=== PATIENT | female | born 1970 | race Caucasian/White ===

== ENCOUNTER → 2016-06-06 | Outpatient (CLI) | payer OTHER ==
[~2016-06-06] MED LIST: 'XANAX0.25 MG PO; ACETAMINOPHEN-H1 TA2 PO; ADVIL CHIL100 MG/5 M PO; AKWA TEARS 15 M15 ML OPH; AMBIEN5 MG PO; AUGMENTIN 500 M1 TAB PO; BENADRYL25 M2 PO; BENTYL10 MG PO; BENTYL20 MG PO; BUMEX2 MG PO; CEFADROXIL500 M1 PO; CEFTIN500 M1 PO; CLARITIN10 MG PO; CYMBALTA20 M1 PO; CYMBALTA60 MG PO; Carafate1 GM/10 ML NG; D-1000 185 MG-11 TAB PO; DAYPRO600 M1 PO; DECADRON4 MG PO; DESENEX43 GM TP; DEXTROSE IV; DUONEB 3 MG/3 ML3 M1 NEB; EFFER-K20 MEQ PO; ELMIRON100 MG PO; FLORASTOR 33 MG1 CAP PO; GABAPENTIN100 M2 PO; GABAPENTIN100 MG PO; GOOD SENSE ALLE10 MG PO; HOMEMED PO; IMODIUM A-D2 M2 PO; INHALERS; IPRAT-ALBUT 0.5-3(2.; K-LOR20 MEQ PO; KETOROLAC10 MG PO; KROGER NIC21 MG/24 H T; KROGER NIC21 MG/24 H TD; LASIX20 MG PO; LISINOPRIL2.5 MG PO; LISINOPRIL5 MG PO; LOPRESSOR25 MG PO; LORAZEPAM0.5 MG PO; LOSARTAN POTASS25 M1 PO; Lomotil,Lonox 01 TAB PO; Lopressor25 MG PO; MACROBID100 M1 PO; MAGOX 400400 MG PO; MAPAP325 MG PO; METHADONE10 MG PO; MIDAZOLAM HCL IV; MIRALAX17 GM PO; MORPHINE SULF2 MG/M1 IV; MOTRIN800 MG PO; MS CONTIN30 MG PO; NEULASTA6 MG/0.6 M IV; NEURONTIN100 MG PO; NEURONTIN300 MG PO; NICOTINE T21 MG/24 H TD; NOVAPLUS SOLU-M40 MG IV; NYSTATIN100000 U/M PO; Nicotrol 10MG I1 BOX INH; ONDANSETRON HYDR8 MG PO; OXAPROZIN600 MG PO; PERCOCET 325 MG1 TA2 PO; PERCOCET 325 MG1 TA7 PO; PERCOCET 325 MG1 TAB PO; PHENERGAN25 M3 PO; PHOS-NAK1 PDR OGT; POTA IV; PREDNICOT10 MG PO; PREDNISONE10 MG PO; PREDNISONE50 MG PO; PRILOSEC20 MG PO; PROAIR HFA8.5 GM INH; PROBIOTIC1 EAC3 PO; PROMETHAZINE25 M1 PO; PROTONIX40 M1 IV; Phenergan25 MG PO; RESTORIL7.5 MG PO; RISPERIDONE0.25 M2 PO; ROBAXIN750 MG PO; SHOWERCH; SINGULAIR10 M1 PO; SONATA5 MG PO; TRAZADONE HYDR100 MG PO; TRAZODONE50 MG PO; TYLENOL650 MG R; ULTRAM50 MG PO; VALIUM2 MG PO; VANCO 750750 MG/250 IV; VANCOMYCIN1 GM/250 M IV; VENTOLIN H0.09 MG/AC INH; VICO75300 PO; VICODIN 5/500 505 MG PO; VICODIN ES 7501 TAB PO; VISTARIL25 M2 PO; VITAMIN B1250 MCG PO; VITAMIN C500 M6 PO; VITAMIN D1000 IU PO; VITAMIN D5000 I2 PO; VOLTAREN GEL1% TP; XANAX0.5 MG PO; ZOFRAN ODT4 MG SL; ZOFRAN8 M1 PO; ZOLPIDEM TARTRAT5 MG PO; ZOVIRAX 5%15 GM T; [UNRECOGNIZED DRUG - OTHER]; [UNRECOGNIZED DRUG - OTHER] OP
[2016-06-06 16:45] LABS: BASO % 0.2 % (0.0-1.0); EOS # 0.1 10*3/uL (0.0-0.4); EOS % 2.2 % (1.0-4.0); HEMATOCRIT 38.7 % (37.0-47.0); HEMOGLOBIN 12.8 g/dl (12.0-16.0); IG # 0.1 10*3/uL (0.0-0.1); LYMPH # 2.2 10*3/uL (1.3-4.4); LYMPH % 37.2 % (27.0-41.0); MEAN CELL VOLUME 93.3 fl (81.0-99.0); MEAN CORPUSCULAR HGB 30.8 pg (27.0-31.0); MEAN CORPUSCULAR HGB CONC 33.1 g/dl (33.0-37.0); MEAN PLATELET VOLUME 9.2 fl (9.6-12.3); MONO # 0.6 10*3/uL (0.1-1.0); MONO % 10.7 % (3.0-9.0); NEUT # 2.9 10*3/uL (2.3-7.9); NEUT % 48.7 % (47.0-73.0); PLATELET COUNT AUTOMATED 215 10*3/uL (130-400); RED BLOOD COUNT 4.15 10*6/uL (4.10-5.10); RED CELL DISTRI WIDTH 13.4 % (0-14.5)
[2016-06-06 17:21] LABS: ALBUMIN 3.3 gm/dl (3.1-4.5); ALKALINE PHOSPHATASE 116 U/L (45-117); BILIRUBIN, TOTAL 0.2 mg/dl (0.2-1.0); BUN 9 mg/dl (7-24); CARBON DIOXIDE 28 mmol/L (21-32); CHLORIDE 106 mmol/L (98-107); CHOLESTEROL 210 mg/dL (<200); EST GLOM FILT AFRICAN AMERICAN > 60 ml/min; GLUCOSE 78 mg/dL (65-99); HDL CHOLESTEROL 61 mg/dl (40-60); LDL CHOLESTEROL 111 mg/dL (9-159); POTASSIUM 3.9 mmol/L (3.5-5.1); SGOT/AST 15 IU/L (3-35); SGPT/ALT 24 U/L (12-78); SODIUM 143 mmol/L (136-145); TOTAL PROTEIN 7.1 gm/dL (6.4-8.2); TRIGLYCERIDES 188 mg/dl (<150); VLDL CHOLESTEROL 38 mg/dL (6-40)
== END | disposition home or self-care (01) ==
LOC: LAB 15:21
PROVIDERS: Family Medicine
DX: Z00.01 Encounter for general adult medical examination with abnormal findings (principal); I10 Essential (primary) hypertension; C50.919 Malignant neoplasm of unspecified site of unspecified female breast; I25.5 Ischemic cardiomyopathy

== ENCOUNTER 2016-07-25 07:37 | Inpatient (IN) | payer OTHER ==
[~2016-07-25] VITALS: Ht 157 cm; Wt 93.0 kg
--- NOTE | ~2016-07-25 | CON ---
[place], [place] REPORT OF CONSULTATION NAME: GIDEON JIMÉNEZ [facility] #: [id number] UNIT #: [id number] ROOM: 415 DOCTOR: FUENTES HAWKINS ED.D) BIRTHDATE: [birth year] DOS: 07/27/2016 HISTORY OF PRESENT ILLNESS: The patient is a 45-year-old female referred by Dr. Cleary for psychological evaluation and competency evaluation. At the present time, this patient is on the 4th floor at [facility]. She is a and has no children. Her parents are both living and her father was present during the interview at her request. She states her family physician is Dr. Koenig and her medical history is pertinent for cancer of the breast with metastasis, hypertension, COPD and major depression. Her medications include ProAir, Valium, Voltaren, Lasix, Neurontin, Ativan, Vistaril, lisinopril, magnesium oxide, Lopressor, Singulair, MS Contin, Zofran, Percocet, Elmiron, trazodone and Cymbalta. She did not tell the staff she was taking Cymbalta and I did inform the hospitalist that she had been taking Cymbalta for quite some time and they will restart her medications. This patient denies any substance abuse issues; however, she does smoke. She was awake, alert and oriented in all three spheres. She denies any suicidal ideation or plan. She states she is having great deal of difficulty with her cancer and is scheduled for chemotherapy again. She is quite depressed about her situation and has been concerned because of her medications. Her family physician is not going to continue to write some of the medications and I suggested she needed to follow up with Psychiatry, but she states she does not want to see anybody else until after her chemo is completed. DIAGNOSES: Major depressive disorder, recurrent. RECOMMENDATIONS: In my opinion, this patient would benefit from continuing her Cymbalta and possibly considering outpatient counseling once her chemotherapy is completed. Thank you very much for this consult. FUENTES HAWKINS ED.D CM:CONSTR:REPORT OF CONSULTATION 1136 07/27/16 1219 interface
[~2016-07-25 07:37] MED LIST changes: -D-1000 185 MG-11 TAB PO; -KROGER NIC21 MG/24 H TD; -MS CONTIN30 MG PO; -Nicotrol 10MG I1 BOX INH; -PREDNISONE50 MG PO; -SINGULAIR10 M1 PO; -VOLTAREN GEL1% TP
[2016-07-25 08:32] LABS: BASO % 0.3 % (0.0-1.0); EOS # 0.2 10*3/uL (0.0-0.4); EOS % 2.8 % (1.0-4.0); HEMATOCRIT 36.6 % (37.0-47.0); LYMPH # 2.2 10*3/uL (1.3-4.4); LYMPH % 35.8 % (27.0-41.0); MEAN CELL VOLUME 93.1 fl (81.0-99.0); MEAN CORPUSCULAR HGB 30.5 pg (27.0-31.0); MEAN CORPUSCULAR HGB CONC 32.8 g/dl (33.0-37.0); MEAN PLATELET VOLUME 9.1 fl (9.6-12.3); MONO # 0.8 10*3/uL (0.1-1.0); MONO % 13.5 % (3.0-9.0); NEUT # 2.9 10*3/uL (2.3-7.9); PLATELET COUNT AUTOMATED 227 10*3/uL (130-400); RED BLOOD COUNT 3.93 10*6/uL (4.10-5.10); RED CELL DISTRI WIDTH 13.2 % (0-14.5); WHITE BLOOD COUNT 6.2 10*3/uL (4.8-10.8)
[2016-07-25 08:41] LABS: INTERNATIONAL NORM RATIO 0.9 (2.0-3.5)
[2016-07-25 08:48] LABS: ALBUMIN 3.1 gm/dl (3.1-4.5); ALKALINE PHOSPHATASE 114 U/L (45-117); BILIRUBIN, TOTAL 0.2 mg/dl (0.2-1.0); BUN 11 mg/dl (7-24); C-REACTIVE PROTEIN 1.31 MG/DL (0-0.3); CARBON DIOXIDE 29 mmol/L (21-32); CHLORIDE 104 mmol/L (98-107); CPK 53 U/L (26-192); EST GLOM FILT AFRICAN AMERICAN > 60 ml/min; GLUCOSE 84 mg/dL (65-99); MAGNESIUM 1.7 mg/dL (1.5-2.1); POTASSIUM 3.7 mmol/L (3.5-5.1); SGOT/AST 13 IU/L (3-35); SGPT/ALT 19 U/L (12-78); SODIUM 141 mmol/L (136-145); TOTAL PROTEIN 6.9 gm/dL (6.4-8.2)
[2016-07-25 08:49] LABS: CKMB < 0.5 ng/ml (0.5-3.6); TROPONIN I < 0.015 ng/ml (<0.045)
[2016-07-25 10:06] LABS: BILIRUBIN NEGATIVE (NEGATIVE); BLOOD NEGATIVE (NEGATIVE); CLARITY CLOUDY (CLEAR); COLOR YELLOW (YELLOW); GLUCOSE NEGATIVE (NEGATIVE); KETONE NEGATIVE (NEGATIVE); LEUKO ESTERASE NEGATIVE (NEGATIVE); NITRITE NEGATIVE (NEGATIVE); PROTEIN NEGATIVE (NEGATIVE); UROBILINOGEN 0.2 E.U./dl (0.2-1.0)
[2016-07-25 10:22] LABS: BACTERIA 3+; MUCOUS 1+; URINE REFLEX COMMENT YES (NO)
[2016-07-25] MEDS ORDERED: SINGULAIR10 M1 PO (11:09)
[2016-07-25] MEDS ORDERED: MS CONTIN30 MG PO (11:11)
[2016-07-25] MEDS ORDERED: VOLTAREN GEL1% TP (12:11)
[2016-07-25] MEDS ORDERED: KROGER NIC21 MG/24 H TD (12:12)
[2016-07-25 12:18] LABS: CKMB < 0.5 ng/ml (0.5-3.6); CPK 53 U/L (26-192); TROPONIN I < 0.015 ng/ml (<0.045)
[2016-07-25 18:26] LABS: CKMB < 0.5 ng/ml (0.5-3.6); CPK 66 U/L (26-192); TROPONIN I < 0.015 ng/ml (<0.045)
[2016-07-26 00:49] LABS: CPK 65 U/L (26-192)
[2016-07-26 00:51] LABS: CKMB < 0.5 ng/ml (0.5-3.6); TROPONIN I < 0.015 ng/ml (<0.045)
[2016-07-26 06:45] LABS: BASO % 0.1 % (0.0-1.0); HEMATOCRIT 36.7 % (37.0-47.0); HEMOGLOBIN 11.9 g/dl (12.0-16.0); IG # 0.1 10*3/uL (0.0-0.1); LYMPH % 9.9 % (27.0-41.0); MEAN CELL VOLUME 93.9 fl (81.0-99.0); MEAN CORPUSCULAR HGB 30.4 pg (27.0-31.0); MEAN CORPUSCULAR HGB CONC 32.4 g/dl (33.0-37.0); MEAN PLATELET VOLUME 9.5 fl (9.6-12.3); MONO # 0.6 10*3/uL (0.1-1.0); NEUT # 8.4 10*3/uL (2.3-7.9); NEUT % 83.2 % (47.0-73.0); PLATELET COUNT AUTOMATED 247 10*3/uL (130-400); RED BLOOD COUNT 3.91 10*6/uL (4.10-5.10); RED CELL DISTRI WIDTH 13.2 % (0-14.5); WHITE BLOOD COUNT 10.1 10*3/uL (4.8-10.8)
[2016-07-26 07:11] LABS: PROTHROMBIN TIME 10.2 SECONDS (9.0-12.4)
[2016-07-26 07:14] LABS: BILIRUBIN, TOTAL 0.1 mg/dl (0.2-1.0); CHLORIDE 104 mmol/L (98-107); POTASSIUM 3.9 mmol/L (3.5-5.1); SODIUM 142 mmol/L (136-145)
[2016-07-26 07:21] LABS: ALBUMIN 3.2 gm/dl (3.1-4.5); ALKALINE PHOSPHATASE 105 U/L (45-117); BUN 12 mg/dl (7-24); CARBON DIOXIDE 27 mmol/L (21-32); EST GLOM FILT AFRICAN AMERICAN > 60 ml/min; FREE T4 0.96 ng/dl (0.76-1.46); GLUCOSE 162 mg/dL (65-99); PHOSPHOROUS 1.4 mg/dL (2.5-4.9); SGOT/AST 9 IU/L (3-35); SGPT/ALT 18 U/L (12-78)
[2016-07-26 07:41] LABS: HEMOGLOBIN A1c 5.6 % (4.8-5.6)
[2016-07-26 09:23] LABS: VITAMIN D, 25-HYDROXY 24.2 ng/mL (30-100)
[2016-07-26 09:24] LABS: FOLIC ACID 6.34 ng/mL (>5.38)
[2016-07-27 10:52] LABS: INTERNATIONAL NORM RATIO 0.9 (2.0-3.5); PROTHROMBIN TIME 9.9 SECONDS (9.0-12.4)
[2016-07-27 11:00] LABS: ALBUMIN 3.1 gm/dl (3.1-4.5); ALKALINE PHOSPHATASE 93 U/L (45-117); BILIRUBIN, TOTAL 0.1 mg/dl (0.2-1.0); BUN 13 mg/dl (7-24); CARBON DIOXIDE 25 mmol/L (21-32); CHLORIDE 107 mmol/L (98-107); EST GLOM FILT AFRICAN AMERICAN > 60 ml/min; GLUCOSE 184 mg/dL (65-99); POTASSIUM 3.9 mmol/L (3.5-5.1); SGOT/AST 12 IU/L (3-35); SGPT/ALT 21 U/L (12-78); SODIUM 144 mmol/L (136-145); TOTAL PROTEIN 6.7 gm/dL (6.4-8.2)
[2016-07-27 11:01] LABS: TROPONIN I < 0.015 ng/ml (<0.045)
[2016-07-27 11:03] LABS: BASO % 0.1 % (0.0-1.0); HEMATOCRIT 36.5 % (37.0-47.0); HEMOGLOBIN 11.6 g/dl (12.0-16.0); IG # 0.3 10*3/uL (0.0-0.1); LYMPH # 1.1 10*3/uL (1.3-4.4); LYMPH % 7.9 % (27.0-41.0); MEAN CELL VOLUME 94.8 fl (81.0-99.0); MEAN CORPUSCULAR HGB 30.1 pg (27.0-31.0); MEAN CORPUSCULAR HGB CONC 31.8 g/dl (33.0-37.0); MEAN PLATELET VOLUME 9.5 fl (9.6-12.3); MONO # 0.7 10*3/uL (0.1-1.0); NEUT # 11.8 10*3/uL (2.3-7.9); NEUT % 85.2 % (47.0-73.0); NUCLEATED RED BLOOD CELL 0.1 % (0.0-0.0); PLATELET COUNT AUTOMATED 227 10*3/uL (130-400); RED BLOOD COUNT 3.85 10*6/uL (4.10-5.10); RED CELL DISTRI WIDTH 13.5 % (0-14.5); WHITE BLOOD COUNT 13.9 10*3/uL (4.8-10.8)
[2016-07-28] MEDS ORDERED: PREDNISONE50 MG PO (09:00)
[2016-07-28] MEDS ORDERED: Nicotrol 10MG I1 BOX INH (09:02)
[2016-07-28] MEDS ORDERED: D-1000 185 MG-11 TAB PO (09:02)
== END 2016-07-28 10:41 | disposition home or self-care (01) | DRG 193 ==
LOC: ED 07:37 → 4E 09:49 → EDHOLD 09:49 → 4E 10:14
PROVIDERS: Emergency Medicine; Internal Medicine; Student in an Organized Health Care Education/Training Program
PROC: 0S9C3ZZ Drainage of Right Knee Joint, Percutaneous Approach (ICD-10-PCS; principal; 2016-07-27)
PROC: 3E0U33Z Introduction of Anti-inflammatory into Joints, Percutaneous Approach (ICD-10-PCS; 2016-07-27)
PROC: 3E0U3BZ Introduction of Anesthetic Agent into Joints, Percutaneous Approach (ICD-10-PCS; 2016-07-27)
DX: J18.9 Pneumonia, unspecified organism (principal); J96.01 Acute respiratory failure with hypoxia; E43 Unspecified severe protein-calorie malnutrition; E27.8 Other specified disorders of adrenal gland; D68.59 Other primary thrombophilia; J44.0 Chronic obstructive pulmonary disease with (acute) lower respiratory infection; F33.9 Major depressive disorder, recurrent, unspecified; C50.911 Malignant neoplasm of unspecified site of right female breast; J44.1 Chronic obstructive pulmonary disease with (acute) exacerbation; G89.29 Other chronic pain; I10 Essential (primary) hypertension; J45.909 Unspecified asthma, uncomplicated; M25.562 Pain in left knee; M25.561 Pain in right knee; Z92.21 Personal history of antineoplastic chemotherapy; I25.2 Old myocardial infarction; Z87.01 Personal history of pneumonia (recurrent); Z90.13 Acquired absence of bilateral breasts and nipples; Z83.6 Family history of other diseases of the respiratory system; Z82.49 Family history of ischemic heart disease and other diseases of the circulatory system; Z80.8 Family history of malignant neoplasm of other organs or systems; Z88.8 Allergy status to other drugs, medicaments and biological substances; Z91.048 Other nonmedicinal substance allergy status; Z79.1 Long term (current) use of non-steroidal anti-inflammatories (NSAID); Z79.899 Other long term (current) drug therapy; Z71.6 Tobacco abuse counseling; Z68.37 Body mass index [BMI] 37.0-37.9, adult

== ENCOUNTER 2016-10-20 00:38 | Inpatient (IN) | payer OTHER ==
[~2016-10-20] VITALS: Ht 157.4 cm; Wt 94.4 kg
[~2016-10-20 00:38] MED LIST changes: +D-1000 185 MG-11 TAB PO; +KROGER NIC21 MG/24 H TD; +MS CONTIN30 MG PO; +Nicotrol 10MG I1 BOX INH; +PREDNISONE50 MG PO; +SINGULAIR10 M1 PO; +VOLTAREN GEL1% TP
[2016-10-20] MEDS ORDERED: CHANTIX1 M1 TD (00:51)
[2016-10-20 00:53] VITALS: BP 143/106
[2016-10-20 01:34] LABS: BASO % 0.4 % (0.0-1.0); EOS # 0.1 10*3/uL (0.0-0.4); EOS % 2.6 % (1.0-4.0); HEMATOCRIT 36.2 % (37.0-47.0); HEMOGLOBIN 12.2 g/dl (12.0-16.0); LYMPH % 38.7 % (27.0-41.0); MEAN CELL VOLUME 93.5 fl (81.0-99.0); MEAN CORPUSCULAR HGB 31.5 pg (27.0-31.0); MEAN CORPUSCULAR HGB CONC 33.7 g/dl (33.0-37.0); MEAN PLATELET VOLUME 8.7 fl (9.6-12.3); MONO # 0.7 10*3/uL (0.1-1.0); NEUT # 2.2 10*3/uL (2.3-7.9); NEUT % 44.1 % (47.0-73.0); PLATELET COUNT AUTOMATED 193 10*3/uL (130-400); RED BLOOD COUNT 3.87 10*6/uL (4.10-5.10); RED CELL DISTRI WIDTH 16.2 % (0-14.5); WHITE BLOOD COUNT 5.1 10*3/uL (4.8-10.8)
[2016-10-20 01:46] LABS: PROTHROMBIN TIME 10.3 SECONDS (9.0-12.4)
[2016-10-20 01:51] LABS: ALBUMIN 3.7 gm/dl (3.1-4.5); ALKALINE PHOSPHATASE 149 U/L (45-117); BILIRUBIN, TOTAL 0.3 mg/dl (0.2-1.0); BUN 10 mg/dl (7-24); CARBON DIOXIDE 31 mmol/L (21-32); CHLORIDE 102 mmol/L (98-107); EST GLOM FILT AFRICAN AMERICAN > 60 ml/min; GLUCOSE 76 mg/dL (65-99); POTASSIUM 3.6 mmol/L (3.5-5.1); SGOT/AST 15 IU/L (3-35); SGPT/ALT 18 U/L (12-78); SODIUM 142 mmol/L (136-145); TOTAL PROTEIN 7.3 gm/dL (6.4-8.2)
[2016-10-20 02:58] LABS: BILIRUBIN NEGATIVE (NEGATIVE); BLOOD NEGATIVE (NEGATIVE); CLARITY SL CLOUDY (CLEAR); COLOR YELLOW (YELLOW); GLUCOSE NEGATIVE (NEGATIVE); KETONE NEGATIVE (NEGATIVE); LEUKO ESTERASE NEGATIVE (NEGATIVE); NITRITE NEGATIVE (NEGATIVE); PROTEIN NEGATIVE (NEGATIVE); SPECIFIC GRAVITY 1.015 (1.005-1.030)
[2016-10-20 03:14] LABS: BACTERIA TRACE; EPITHELIAL CELLS TNTC
[2016-10-20 03:15] LABS: URINE REFLEX COMMENT NO (NO)
[2016-10-20 03:50] VITALS: BP 127/79
[2016-10-20] MEDS ORDERED: OMEPRAZOLE20 M2 PO (04:33)
[2016-10-20] MEDS ORDERED: IMODIUM A-D2 M3 PO (04:34)
[2016-10-20] MEDS ORDERED: SYMBICORT1 AE1 INH (04:36)
[2016-10-20] MEDS ORDERED: POTASSIUM CHLO20 ME4 PO (04:37)
[2016-10-20] MEDS ORDERED: CAPECITABINE500 MG PO (04:41)
[2016-10-20 08:00] VITALS: BP 122/68
[2016-10-20 16:00] VITALS: BP 136/72
[2016-10-20 20:00] VITALS: BP 116/65
[2016-10-20] MEDS ORDERED: NICODERM C21 MG/24 H TD (23:14)
[2016-10-21] VITALS: BP 106/57
[2016-10-21 08:00] VITALS: BP 100/40
[2016-10-21 16:00] VITALS: BP 132/98
[2016-10-21 20:00] VITALS: BP 145/89
[2016-10-22] VITALS: BP 118/56
[2016-10-22 06:13] LABS: BASO % 0.1 % (0.0-1.0); HEMATOCRIT 33.6 % (37.0-47.0); HEMOGLOBIN 10.8 g/dl (12.0-16.0); IG # 0.1 10*3/uL (0.0-0.1); LYMPH % 11.4 % (27.0-41.0); MEAN CELL VOLUME 98.2 fl (81.0-99.0); MEAN CORPUSCULAR HGB 31.6 pg (27.0-31.0); MEAN CORPUSCULAR HGB CONC 32.1 g/dl (33.0-37.0); MEAN PLATELET VOLUME 9.4 fl (9.6-12.3); MONO # 0.4 10*3/uL (0.1-1.0); MONO % 4.1 % (3.0-9.0); NEUT # 7.1 10*3/uL (2.3-7.9); PLATELET COUNT AUTOMATED 178 10*3/uL (130-400); RED BLOOD COUNT 3.42 10*6/uL (4.10-5.10); RED CELL DISTRI WIDTH 17.1 % (0-14.5); WHITE BLOOD COUNT 8.5 10*3/uL (4.8-10.8)
[2016-10-22 06:26] LABS: BUN 17 mg/dl (7-24); CARBON DIOXIDE 29 mmol/L (21-32); CHLORIDE 102 mmol/L (98-107); EST GLOM FILT AFRICAN AMERICAN > 60 ml/min; GLUCOSE 171 mg/dL (65-99); POTASSIUM 4.1 mmol/L (3.5-5.1); SODIUM 140 mmol/L (136-145)
[2016-10-22 08:00] VITALS: BP 127/67
[2016-10-22] MEDS ORDERED: PREDNISONE10 MG PO (11:00)
[2016-10-22] MEDS ORDERED: DUONEB 3 MG/3 ML3 M1 INH (11:00)
[2016-10-22] MEDS ORDERED: D-1000 185 MG-11 TAB PO (11:00)
[2016-10-22] MEDS ORDERED: CHANTIX1 M1 PO (11:00)
[2016-10-22] MEDS ORDERED: LEVAQUIN500 M2 PO (11:00)
[2016-10-22] MEDS ORDERED: MS CONTIN30 MG PO (11:00)
[2016-10-22] MEDS ORDERED: AEROECLIPSE NEB1 DEV NEB (11:00)
[2016-10-22] MEDS ORDERED: LACTULOSE20 GM/30 M PO (11:02)
== END 2016-10-22 13:16 | disposition home or self-care (01) | DRG 177 ==
LOC: ED 00:38 → 5E 03:40
PROVIDERS: Emergency Medicine; Internal Medicine
DX: J15.6 Pneumonia due to other Gram-negative bacteria (principal); J96.01 Acute respiratory failure with hypoxia; D70.1 Agranulocytosis secondary to cancer chemotherapy; D68.59 Other primary thrombophilia; T82.898A Other specified complication of vascular prosthetic devices, implants and grafts, initial encounter; F33.9 Major depressive disorder, recurrent, unspecified; J44.9 Chronic obstructive pulmonary disease, unspecified; G62.9 Polyneuropathy, unspecified; K59.03 Drug induced constipation; G89.29 Other chronic pain; I10 Essential (primary) hypertension; F41.9 Anxiety disorder, unspecified; F17.210 Nicotine dependence, cigarettes, uncomplicated; E78.1 Pure hyperglyceridemia; E55.9 Vitamin D deficiency, unspecified; I25.2 Old myocardial infarction; Z80.8 Family history of malignant neoplasm of other organs or systems; Z88.8 Allergy status to other drugs, medicaments and biological substances; Z91.048 Other nonmedicinal substance allergy status; Z90.13 Acquired absence of bilateral breasts and nipples; Z79.51 Long term (current) use of inhaled steroids; Z79.1 Long term (current) use of non-steroidal anti-inflammatories (NSAID); Z79.899 Other long term (current) drug therapy; T40.2X5A Adverse effect of other opioids, initial encounter

== ENCOUNTER → 2016-11-22 | Outpatient (CLI) | payer OTHER ==
[~2016-11-22] MED LIST changes: +AEROECLIPSE NEB1 DEV NEB; +CAPECITABINE500 MG PO; +CHANTIX1 M1 PO; +CHANTIX1 M1 TD; +DUONEB 3 MG/3 ML3 M1 INH; +IMODIUM A-D2 M3 PO; +LACTULOSE20 GM/30 M PO; +LEVAQUIN500 M2 PO; +NICODERM C21 MG/24 H TD; +OMEPRAZOLE20 M2 PO; +POTASSIUM CHLO20 ME4 PO; +SYMBICORT1 AE1 INH
[2016-11-22 14:20] LABS: BASO % 0.4 % (0.0-1.0); EOS # 0.2 10*3/uL (0.0-0.4); EOS % 1.9 % (1.0-4.0); HEMOGLOBIN 12.3 g/dl (12.0-16.0); IG # 0.1 10*3/uL (0.0-0.1); MEAN CELL VOLUME 98.1 fl (81.0-99.0); MEAN CORPUSCULAR HGB 33.5 pg (27.0-31.0); MEAN CORPUSCULAR HGB CONC 34.2 g/dl (33.0-37.0); MEAN PLATELET VOLUME 9.1 fl (9.6-12.3); MONO # 1.1 10*3/uL (0.1-1.0); MONO % 13.6 % (3.0-9.0); NEUT # 4.4 10*3/uL (2.3-7.9); NEUT % 56.5 % (47.0-73.0); NUCLEATED RED BLOOD CELL 0.3 % (0.0-0.0); PLATELET COUNT AUTOMATED 205 10*3/uL (130-400); RED BLOOD COUNT 3.67 10*6/uL (4.10-5.10); RED CELL DISTRI WIDTH 19.4 % (0-14.5); WHITE BLOOD COUNT 7.7 10*3/uL (4.8-10.8)
[2016-11-22 14:37] LABS: ALBUMIN 3.7 gm/dl (3.1-4.5); ALKALINE PHOSPHATASE 173 U/L (45-117); BILIRUBIN, TOTAL 0.4 mg/dl (0.2-1.0); BUN 15 mg/dl (7-24); CARBON DIOXIDE 24 mmol/L (21-32); CHLORIDE 104 mmol/L (98-107); EST GLOM FILT AFRICAN AMERICAN > 60 ml/min; GLUCOSE 97 mg/dL (65-99); POTASSIUM 3.8 mmol/L (3.5-5.1); SGOT/AST 20 IU/L (3-35); SGPT/ALT 25 U/L (12-78); SODIUM 138 mmol/L (136-145)
== END | disposition home or self-care (01) ==
LOC: LAB 13:39
DX: C50.919 Malignant neoplasm of unspecified site of unspecified female breast (principal)

== ENCOUNTER 2016-12-12 14:22 | Inpatient (IN) | payer OTHER ==
[~2016-12-12] VITALS: Ht 157.4 cm; Wt 94.8 kg
--- NOTE | ~2016-12-12 | CON ---
[place], [place] REPORT OF CONSULTATION NAME: GIDEON JIMÉNEZ [facility] #: [id number] UNIT #: [id number] ROOM: 411 DOCTOR: VALERIE BERGERON MD BIRTHDATE: [birth year] DOS: 12/13/2016 PULMONARY CONSULTATION EVALUATION AND MANAGEMENT CONSULTATION REQUESTED BY: Hospitalist service. REASON FOR CONSULTATION: To assess the patient for shortness of breath and exacerbation of COPD or bronchial asthma. HISTORY OF PRESENT ILLNESS: This is a 46-year-old white female known to me with past history of breast cancer, chronic nicotine dependence as well as bronchial asthma. The patient has been admitted to the hospital under the hospitalist services on 12/12/2016. She presented to the Emergency Room on 12/12/2016 as she has been noted progressive increased coughing, which has been present for the past couple of weeks and now resolving. She has been treated in October 2016 for the similar symptom. Shortness of breath occurs with moderate exertion. Coughing was noted productive with yellowish sputum expectoration. She denies symptoms of hemoptysis or any chest pain, shortness of breath occurred for this patient with exertion. She stated partial improvement in symptoms since hospitalization yesterday with current medical management. REVIEW OF SYSTEMS: CONSTITUTIONAL: Fatigue and tiredness noted without any fever or chills. EYES: Denies any burning, redness, or tenderness. EARS, NOSE, SORE THROAT: No sore throat, hoarseness, otalgia, postnasal drainage. CARDIOVASCULAR: Denies anginal pain, edema or pain of the lower extremities. GASTROINTESTINAL: Denies dysphagia, nausea, vomiting, diarrhea, abdominal pain, hematemesis, melena or hematochezia. SKIN: Denies lesions or rashes. CENTRAL NERVOUS SYSTEM: No dizziness, headache, diplopia, syncopal episodes. Remaining systems were reviewed and they were noted all negative. PAST MEDICAL HISTORY: 1. Acute progressive respiratory failure requiring intubation, mechanical ventilation and subsequent extubation in 2017. 2. History of bilateral breast cancer with mastectomy, which has been done previously and then later on treated with chemotherapy. Currently, the patient has been treated by a specialist in [facility] in [place], [place]. 3. History of past pancytopenia related to chemotherapy. 4. Uncomplicated severe persistent bronchial asthma and acute chronic nicotine dependence. 5. Anxiety disorder and depression. 6. History of endometriosis. 7. Degenerative disc of the spine. 8. Gastroesophageal reflux. 9. Obesity. PAST SURGICAL HISTORY: 1. Bilateral mastectomy in 2015. [place], [place] REPORT OF CONSULTATION NAME: GIDEON JIMÉNEZ UNIT #: [id number] ROOM: 411 DOCTOR: QUAN GARCIA MD,VALERIE BIRTHDATE: [birth year] 2. Right oophorectomy. 3. Parathyroidectomy. 4. Tonsillectomy and adenoidectomy. 5. Fiberoptic bronchoscopy. 6. Intubation and mechanical ventilation. SOCIAL HISTORY: The patient is single and not , does not have any history of alcohol use or illicit drug use. Tobacco use was noted since teenager up to 2 packs of cigarettes per day. Currently smoking half a pack of cigarettes a day and using Chantix for the past couple of weeks to help with quitting the tobacco use. FAMILY HISTORY: Reported for diabetes, hypertension, stroke, and kidney failure. MEDICATIONS: The current administered medications were noted use of vitamin D, mag oxide, omeprazole, Dulera, metoprolol tartrate, gabapentin, trazodone, lactulose, pentosan, Chantix, nicotine replacement patches, capecitabine 2000 mg b.i.d., Singulair, lisinopril, loratadine, Lovenox for DVT prophylaxis, Cymbalta, hydroxyzine, IV Solu-Medrol 40 mg q. 8 hours, DuoNeb q. 4 hours, Zithromax, Rocephin, and other p.r.n. medication administration. DRUG ALLERGY HISTORY: Noted as allergies to: 1. LODINE. 2. METAPROTERENOL. 4. REGLAN. PHYSICAL EXAMINATION: GENERAL: A 46-year-old female who has been currently noted awake and alert without any distress with moderate obesity. Height of 5 feet 3 inches, weight of 209 pounds. BMI 38.2. VITAL SIGNS: Normal temperature since admission, respiratory rate 16-20, heart rate 90-94, blood pressure 138/89-136/80. Pulse oxygen saturation of the patient noted on room air 95% saturation. HEENT: Moderate obesity. Neck was supple. Head was atraumatic. Eyes nonicterus. CARDIOVASCULAR SYSTEM: S1, S2 audible. LUNGS: Without any crackles. The expiratory wheezing was present in the lungs bilaterally. ABDOMEN: Soft, nontender. EXTREMITIES: Shows no edema, clubbing or cyanosis. LABORATORY DATA: CMP yesterday on admission was noted mild elevation, glucose 120, AST 43. Remaining CMP was normal. The lactic acid 2.3 yesterday, follow up lactic acid of 2.6 yesterday. The CBC that was done on 12/12/2016, WBC count was normal, platelet count was normal, hemoglobin 10.2, hematocrit 31.3. PT/PTT yesterday were noted as normal. The chest x-ray of the patient that was done on 12/12/2016, two-view was taken in the Emergency Room was noted without any acute pulmonary infiltration or other acute abnormalities. [place], [place] REPORT OF CONSULTATION NAME: GIDEON JIMÉNEZ UNIT #: [id number] ROOM: 411 DOCTOR: VALERIE BERGERON MD BIRTHDATE: [birth year] IMPRESSION: 1. The patient has been currently admitted to the hospital for the management of acute exacerbation of uncomplicated severe persistent bronchial asthma. 2. Chronic nicotine dependence for this patient still noted, tobacco use half a pack of cigarettes per day. 3. History of breast cancer with metastasis. The patient was treated with chemotherapy. 4. Anemia. The patient appeared to be chronic. PLAN OF MANAGEMENT: The patient will be continued with current present plan of therapy with intravenous steroids, bronchodilators with a nebulizer q. 4 hours. Obtain sputum for Gram stain and culture. Continuation of the Chantix and nicotine replacement patch to help with tobacco cessation. DVT prophylaxis will be continued. Monitor respiratory status gradually, reduction of the medication, Solu-Medrol based on the improvement in symptom, no change in the antibiotics will be necessary. Other supportive therapy, plan of management. Thanks for allowing me to participate in the care of this patient. VALERIE GLASS MD CM:CONSTR:REPORT OF CONSULTATION 1625 12/13/16 1723 interface
--- NOTE | ~2016-12-12 | PR ---
[place], [place] PROGRESS NOTE NAME: GIDEON JIMÉNEZ UNIT #: [id number] ROOM: 411 DOCTOR: VALERIE BERGERON MD BIRTHDATE: [birth year] DOS: 12/14/2016 PULMONARY FOLLOWUP NOTE SUBJECTIVE: The patient was complaining of pain in the lower back, which has been treated with pain medication. The respiratory symptom has been noted with gradual resolution. The patient denies symptoms of chest pain or any abdominal pain. OBJECTIVE: VITAL SIGNS: For the patient which has been recorded showed the temperature noted as normal, respiratory rate recorded as 18, heart rate 87, blood pressure 135/93. HEENT: Examination showed no acute change. NECK: Supple. CARDIOVASCULAR: S1, S2 audible. LUNGS: Noted without any wheezing or crackles. Breaths are noted mildly decreased bilaterally. ABDOMEN: Soft, nontender. LABORATORY DATA: The patient's CBC today: WBC count 13.5, hemoglobin 9.2, hematocrit 28.0, platelet count 191,000. Blood cultures showed no bacterial growth from 12/12/2016. Final culture results are pending. Resolution of lactic acidosis noted from yesterday as well. IMPRESSION: 1. The patient will be currently treated for acute exacerbation of bronchial asthma with history of chronic nicotine dependency. 2. History of bilateral breast cancer as well. 3. General anxiety disorder. 4. Chronic lower back pain as well. 5. Anemia of chronic illness. PLAN OF MANAGEMENT: Continuation of current dose of corticosteroids, bronchodilators, and oxygen supplementation. Start reduction of the corticosteroids from tomorrow. Continue nicotine replacement patches on the Chantix. Monitoring the other symptoms of the patient closely. Usual care, other supportive therapy, plan of management and treatments. [place], [place] PROGRESS NOTE NAME: GIDEON JIMÉNEZ UNIT #: [id number] ROOM: 411 DOCTOR: VALERIE BERGERON MD BIRTHDATE: [birth year] VALERIE GLASS MD CM:PNTRANS [id number] VALERIE GARCIA MD 12/14/16 1610 interface
--- NOTE | ~2016-12-12 | PR ---
[place], [place] PROGRESS NOTE NAME: GIDEON JIMÉNEZ UNIT #: [id number] ROOM: 411 DOCTOR: VALERIE BERGERON MD BIRTHDATE: [birth year] DOS: 12/15/2016 SUBJECTIVE: She has been noted with pain which has been controlled in the lower back. She does have some cough with some sputum expectoration, shortness of breath and wheezing noted to be decreased. The patient denies any hemoptysis. OBJECTIVE: VITAL SIGNS: Normal temperature, respiratory rate 18, heart rate 56-64, blood pressure 151/87 - 154/90, pulse oxygen saturation on room air was 98% saturation. HEENT: No new change. NECK: Supple. CARDIOVASCULAR: S1, S2 audible. LUNGS: Moderate decreased breath sounds in the lungs bilaterally. ABDOMEN: Soft, nontender. EXTREMITIES: Show chronic [id number] obesity. LABORATORY DATA: CBC: This morning, WBC count 9.5, hemoglobin 9.5, hematocrit 28.7, platelet count was normal. CMP of this morning was noted normal BUN and creatinine. IMPRESSION: 1. The patient with resolving acute exacerbation of bronchial asthma with acute tracheobronchitis. 2. Pain in the lower back also noted. The x-ray of the lumbar spine described multilevel facet hypertrophy. There was no malalignment or other compression deformity described. 3. History of breast cancer, bilateral mastectomy and management with chemotherapy. PLAN OF MANAGEMENT: Bronchodilators and the pain management to be continued previously in progress. Continuation of antibiotics and bronchodilators. Reduce the dose of Solu-Medrol to 40 mg IV b.i.d. at this time. Further treatment change will be done based on progression of the illness. [place], [place] PROGRESS NOTE NAME: GIDEON JIMÉNEZ UNIT #: [id number] ROOM: 411 DOCTOR: VALERIE BERGERON MD BIRTHDATE: [birth year] VALERIE GLASS MD CM:PNTRANS [id number] VALERIE GARCIA MD 12/17/16 0351 interface
--- NOTE | ~2016-12-12 | PR ---
[place], [place] PROGRESS NOTE NAME: [facility]Z [id number] UNIT #: [id number] ROOM: 411 DOCTOR: QUAN GARCIA MD,VALERIE BIRTHDATE: [birth year] DOS: 12/16/2016 PULMONARY FOLLOWUP SUBJECTIVE: She has been noted comfortable at this time. The patient was noted with pain in the lower back, which has been treated with pain medications. Shortness of breath. The symptoms have been resolving. OBJECTIVE: VITAL SIGNS: Normal temperature, respiratory rate 18, heart rate 66, blood pressure 146/78. Pulse ox saturation noted on room air 96% saturation. HEENT: No acute change. NECK: Supple. CARDIOVASCULAR: S1, S2 audible. LUNGS: Noted with scattered wheezing, no crackles. ABDOMEN: Soft, nontender and obese. LABORATORY DATA: CBC: Hemoglobin 10, hematocrit 29.4, WBC count normal, platelet count was normal. IMPRESSION: 1. Resolving acute exacerbation of chronic obstructive pulmonary disease with acute tracheobronchitis ____ arthritis of the lower back with the pain, which has been treated. 2. History of breast cancer. PLAN OF TREATMENT: Continue current dose of Solu-Medrol additional 24 hours and consider possible home discharge on oral medications. After that, depends on further improvement in the respiratory status. Continue other supportive plan and management and care. Usual treatment and therapies. VALERIE GLASS MD CM:PNTRANS [id number] VALERIE GARCIA MD 12/17/16 0523 interface
--- NOTE | ~2016-12-12 | PR ---
[place], [place] PROGRESS NOTE NAME: GIDEON JIMÉNEZ [facility] #: [id number] UNIT #: [id number] ROOM: 411 DOCTOR: QUAN GARCIA MD,VALERIE BIRTHDATE: [birth year] DOS: 12/17/2016 PULMONARY FOLLOWUP SUBJECTIVE: She has been noted comfortable with reduction of respiratory symptom continued. Still noted pain in the lower back, treated with pain medication. Denies symptoms of chest pain. Coughing has been noted with some sputum expectoration at times. The culture of the sputum on 12/16 preliminary showed normal abida. Gram stain was pending. IMPRESSION: 1. The patient with resolving acute exacerbation of bronchial asthma with acute tracheobronchitis and acute on chronic nicotine dependence, currently using the nicotine replacement patches, Chantix for tobacco cessation, history of breast cancer. 2. Lower back pain. PLAN OF TREATMENT: Continuation of the current therapy, could be considered for discharge on oral medications and tapering prednisone and antibiotics. Continue the previous therapy, plan of management. Usual care. Other supportive therapies. VALERIE GLASS MD CM:PNTRANS [phone] VALERIE GARCIA MD 12/17/16 1005 interface
[2016-12-12 14:40] VITALS: BP 103/64
[2016-12-12 16:00] VITALS: BP 142/90
[2016-12-12 16:55] LABS: BILIRUBIN NEGATIVE (NEGATIVE); BLOOD NEGATIVE (NEGATIVE); CLARITY CLEAR (CLEAR); COLOR YELLOW (YELLOW); GLUCOSE NEGATIVE (NEGATIVE); KETONE NEGATIVE (NEGATIVE); LEUKO ESTERASE NEGATIVE (NEGATIVE); NITRITE NEGATIVE (NEGATIVE); PH 7.5 (5.0-9.0); PROTEIN TRACE (NEGATIVE); SPECIFIC GRAVITY 1.015 (1.005-1.030)
[2016-12-12 17:01] LABS: BACTERIA TRACE; URINE REFLEX COMMENT NO (NO); WBC 0-2 wbc/hpf (0-5)
[2016-12-12 17:34] LABS: ALBUMIN 3.4 gm/dl (3.1-4.5); ALKALINE PHOSPHATASE 151 U/L (45-117); BILIRUBIN, TOTAL 0.4 mg/dl (0.2-1.0); BUN 9 mg/dl (7-24); CARBON DIOXIDE 27 mmol/L (21-32); CHLORIDE 101 mmol/L (98-107); EST GLOM FILT AFRICAN AMERICAN > 60 ml/min; GLUCOSE 120 mg/dL (65-99); POTASSIUM 4.4 mmol/L (3.5-5.1); SGOT/AST 43 IU/L (3-35); SGPT/ALT 28 U/L (12-78); SODIUM 139 mmol/L (136-145); TOTAL PROTEIN 6.7 gm/dL (6.4-8.2)
[2016-12-12 17:39] LABS: TROPONIN I < 0.015 ng/ml (<0.045)
[2016-12-12 19:26] VITALS: BP 145/83
[2016-12-12 20:00] VITALS: BP 142/90
[2016-12-12] MEDS ORDERED: MORPHINE SULFAT3011 PO (20:25)
[2016-12-12] MEDS ORDERED: DULCOLAX5 M1 PO (21:09)
[2016-12-12 21:44] LABS: BASO % 0.4 % (0.0-1.0); EOS # 0.1 10*3/uL (0.0-0.4); EOS % 2.1 % (1.0-4.0); HEMATOCRIT 31.3 % (37.0-47.0); HEMOGLOBIN 10.2 g/dl (12.0-16.0); IG # 0.1 10*3/uL (0.0-0.1); LYMPH # 0.8 10*3/uL (1.3-4.4); LYMPH % 14.8 % (27.0-41.0); MEAN CELL VOLUME 105.4 fl (81.0-99.0); MEAN CORPUSCULAR HGB 34.3 pg (27.0-31.0); MEAN CORPUSCULAR HGB CONC 32.6 g/dl (33.0-37.0); MEAN PLATELET VOLUME 9.1 fl (9.6-12.3); MONO # 0.2 10*3/uL (0.1-1.0); MONO % 3.9 % (3.0-9.0); NEUT # 4.4 10*3/uL (2.3-7.9); NEUT % 76.5 % (47.0-73.0); NUCLEATED RED BLOOD CELL 0.1 10*3/uL (0.0-0.0); NUCLEATED RED BLOOD CELL 0.9 % (0.0-0.0); PLATELET COUNT AUTOMATED 197 10*3/uL (130-400); RED BLOOD COUNT 2.97 10*6/uL (4.10-5.10); RED CELL DISTRI WIDTH 19.8 % (0-14.5); WHITE BLOOD COUNT 5.7 10*3/uL (4.8-10.8)
[2016-12-12 21:56] LABS: PROTHROMBIN TIME 10.2 SECONDS (8.9-12.2)
[2016-12-12 23:41] LABS: LA>2 REFLEX 2 HR DRAW NOW
[2016-12-13] VITALS: BP 136/80
[2016-12-13 00:23] LABS: LA>2 RFLX FOLLOW UP AT 2 HRS 2.6 mmol/L (0.4-2.0)
[2016-12-13 02:12] LABS: LA>2 REFLEX 4 HR DRAW NOW
[2016-12-13 03:42] LABS: PROTHROMBIN TIME 10.2 SECONDS (8.9-12.2)
[2016-12-13 03:44] LABS: BUN 9 mg/dl (7-24); CARBON DIOXIDE 29 mmol/L (21-32); CHLORIDE 104 mmol/L (98-107); EST GLOM FILT AFRICAN AMERICAN > 60 ml/min; GLUCOSE 201 mg/dL (65-99); MAGNESIUM 1.6 mg/dL (1.5-2.1); PHOSPHOROUS 1.6 mg/dL (2.5-4.9); POTASSIUM 3.9 mmol/L (3.5-5.1); SODIUM 141 mmol/L (136-145)
[2016-12-13 04:00] VITALS: BP 114/58
[2016-12-13 08:00] VITALS: BP 127/84
[2016-12-13 09:53] LABS: BASO % 0.1 % (0.0-1.0); HEMATOCRIT 29.7 % (37.0-47.0); HEMOGLOBIN 9.8 g/dl (12.0-16.0); IG # 0.1 10*3/uL (0.0-0.1); LYMPH # 0.8 10*3/uL (1.3-4.4); LYMPH % 10.3 % (27.0-41.0); MEAN CELL VOLUME 105.3 fl (81.0-99.0); MEAN CORPUSCULAR HGB 34.8 pg (27.0-31.0); MEAN PLATELET VOLUME 9.6 fl (9.6-12.3); MONO # 0.3 10*3/uL (0.1-1.0); NEUT # 6.5 10*3/uL (2.3-7.9); NEUT % 84.3 % (47.0-73.0); NUCLEATED RED BLOOD CELL 0.3 % (0.0-0.0); PLATELET COUNT AUTOMATED 187 10*3/uL (130-400); RED BLOOD COUNT 2.82 10*6/uL (4.10-5.10); RED CELL DISTRI WIDTH 19.7 % (0-14.5); WHITE BLOOD COUNT 7.7 10*3/uL (4.8-10.8)
[2016-12-13 10:09] LABS: ALBUMIN 2.9 gm/dl (3.1-4.5); ALKALINE PHOSPHATASE 147 U/L (45-117); BILIRUBIN, TOTAL 0.3 mg/dl (0.2-1.0); BUN 10 mg/dl (7-24); CARBON DIOXIDE 25 mmol/L (21-32); CHLORIDE 107 mmol/L (98-107); EST GLOM FILT AFRICAN AMERICAN > 60 ml/min; GLUCOSE 198 mg/dL (65-99); POTASSIUM 3.7 mmol/L (3.5-5.1); SGOT/AST 17 IU/L (3-35); SGPT/ALT 23 U/L (12-78); SODIUM 141 mmol/L (136-145); TOTAL PROTEIN 6.1 gm/dL (6.4-8.2)
[2016-12-13 12:00] VITALS: BP 138/89
[2016-12-13 14:02] LABS: LA>2 REFLEX 2 HR DRAW NOW
[2016-12-13 14:26] LABS: LA>2 RFLX FOLLOW UP AT 2 HRS 2.1 mmol/L (0.4-2.0)
[2016-12-13 16:00] VITALS: BP 139/88
[2016-12-13 16:12] LABS: LA>2 REFLEX 4 HR DRAW NOW
[2016-12-13 20:00] VITALS: BP 137/89
[2016-12-14] VITALS: BP 133/85
[2016-12-14 06:42] LABS: BASO % 0.1 % (0.0-1.0); HEMOGLOBIN 9.2 g/dl (12.0-16.0); IG # 0.1 10*3/uL (0.0-0.1); LYMPH # 0.9 10*3/uL (1.3-4.4); LYMPH % 6.8 % (27.0-41.0); MEAN CELL VOLUME 105.7 fl (81.0-99.0); MEAN CORPUSCULAR HGB 34.7 pg (27.0-31.0); MEAN CORPUSCULAR HGB CONC 32.9 g/dl (33.0-37.0); MEAN PLATELET VOLUME 9.6 fl (9.6-12.3); MONO % 7.4 % (3.0-9.0); NEUT # 11.4 10*3/uL (2.3-7.9); NEUT % 84.7 % (47.0-73.0); NUCLEATED RED BLOOD CELL 0.1 % (0.0-0.0); PLATELET COUNT AUTOMATED 191 10*3/uL (130-400); RED BLOOD COUNT 2.65 10*6/uL (4.10-5.10); RED CELL DISTRI WIDTH 20.4 % (0-14.5); WHITE BLOOD COUNT 13.5 10*3/uL (4.8-10.8)
[2016-12-14 06:52] LABS: ALBUMIN 3.1 gm/dl (3.1-4.5); ALKALINE PHOSPHATASE 117 U/L (45-117); BILIRUBIN, TOTAL 0.2 mg/dl (0.2-1.0); BUN 9 mg/dl (7-24); CARBON DIOXIDE 24 mmol/L (21-32); CHLORIDE 110 mmol/L (98-107); EST GLOM FILT AFRICAN AMERICAN > 60 ml/min; GLUCOSE 188 mg/dL (65-99); POTASSIUM 3.7 mmol/L (3.5-5.1); SGOT/AST 8 IU/L (3-35); SGPT/ALT 19 U/L (12-78); SODIUM 141 mmol/L (136-145); TOTAL PROTEIN 5.8 gm/dL (6.4-8.2)
[2016-12-14 08:00] VITALS: BP 135/93
[2016-12-14 16:00] VITALS: BP 136/95
[2016-12-14 20:00] VITALS: BP 131/76
[2016-12-15] VITALS: BP 151/85
[2016-12-15 06:32] LABS: HEMATOCRIT 28.7 % (37.0-47.0); HEMOGLOBIN 9.5 g/dl (12.0-16.0); MEAN CELL VOLUME 106.3 fl (81.0-99.0); MEAN CORPUSCULAR HGB 35.2 pg (27.0-31.0); MEAN CORPUSCULAR HGB CONC 33.1 g/dl (33.0-37.0); MEAN PLATELET VOLUME 9.2 fl (9.6-12.3); NUCLEATED RED BLOOD CELL 0.4 % (0.0-0.0); PLATELET COUNT AUTOMATED 161 10*3/uL (130-400); WHITE BLOOD COUNT 9.5 10*3/uL (4.8-10.8)
[2016-12-15 06:48] LABS: ALBUMIN 3.1 gm/dl (3.1-4.5); ALKALINE PHOSPHATASE 121 U/L (45-117); BILIRUBIN, TOTAL 0.2 mg/dl (0.2-1.0); BUN 11 mg/dl (7-24); CARBON DIOXIDE 26 mmol/L (21-32); CHLORIDE 108 mmol/L (98-107); EST GLOM FILT AFRICAN AMERICAN > 60 ml/min; GLUCOSE 115 mg/dL (65-99); SGOT/AST 12 IU/L (3-35); SGPT/ALT 20 U/L (12-78); SODIUM 142 mmol/L (136-145); TOTAL PROTEIN 6.1 gm/dL (6.4-8.2)
[2016-12-15 07:05] LABS: ATYPICAL LYMPHS 1 % (0-0); EOSINOPHIL # 0.1 10*3/uL (0-0.4); EOSINOPHILS 1 % (1-4); LYMPHOCYTE # 0.7 10*3/uL (1.3-4.4); METAMYELOCYTES 2 % (0-0); MONOCYTE # 0.6 10*3/uL (0.1-1.0); MYELOCYTES 1 % (0-0); NEUTROPHIL # 7.9 10*3/uL (2.3-7.9); NEUTROPHILS 83 % (47-73); TOTAL CELLS COUNTED 100 #CELLS
[2016-12-15 07:06] LABS: PLATELET SUFFICIENCY NORMAL (NORMAL); POLYCHROMASIA SLIGHT
[2016-12-15 08:00] VITALS: BP 154/90
[2016-12-15 12:00] VITALS: BP 151/87
[2016-12-15 16:00] VITALS: BP 152/81
[2016-12-15 20:00] VITALS: BP 160/80
[2016-12-16] VITALS: BP 148/80
[2016-12-16 06:16] LABS: HEMATOCRIT 29.4 % (37.0-47.0); MEAN CELL VOLUME 104.6 fl (81.0-99.0); MEAN CORPUSCULAR HGB 35.6 pg (27.0-31.0); MEAN PLATELET VOLUME 9.6 fl (9.6-12.3); NUCLEATED RED BLOOD CELL 0.1 10*3/uL (0.0-0.0); NUCLEATED RED BLOOD CELL 0.9 % (0.0-0.0); PLATELET COUNT AUTOMATED 165 10*3/uL (130-400); RED BLOOD COUNT 2.81 10*6/uL (4.10-5.10); RED CELL DISTRI WIDTH 18.7 % (0-14.5); WHITE BLOOD COUNT 8.1 10*3/uL (4.8-10.8)
[2016-12-16 07:08] LABS: LYMPHOCYTE # 0.3 10*3/uL (1.3-4.4); METAMYELOCYTES 1 % (0-0); MONOCYTE # 0.6 10*3/uL (0.1-1.0); MYELOCYTES 2 % (0-0); NEUTROPHILS 86 % (47-73); PLATELET SUFFICIENCY NORMAL (NORMAL); TOTAL CELLS COUNTED 100 #CELLS
[2016-12-16 08:00] VITALS: BP 152/81
[2016-12-16 12:00] VITALS: BP 146/78
[2016-12-16 16:00] VITALS: BP 121/93
[2016-12-16 20:00] VITALS: BP 126/74
[2016-12-17] VITALS: BP 151/95
[2016-12-17 08:00] VITALS: BP 125/73
[2016-12-17] MEDS ORDERED: PREDNISONE10 MG PO (11:53)
[2016-12-17] MEDS ORDERED: AVPAK AZITHROM250 MG PO (11:53)
[2016-12-17] MEDS ORDERED: NORCO 10-325 T1 EACH PO (11:53)
[2016-12-17] MEDS ORDERED: SUPRAX400 M2 PO (11:53)
== END 2016-12-17 13:33 | disposition home health service (06) | DRG 190 ==
LOC: ED 14:22 → 4E 19:04
PROVIDERS: Family Medicine; Internal Medicine; Internal Medicine Hospice and Palliative Medicine; Physician Assistant; Registered Nurse
DX: J44.0 Chronic obstructive pulmonary disease with (acute) lower respiratory infection (principal); J18.9 Pneumonia, unspecified organism; E44.0 Moderate protein-calorie malnutrition; C50.919 Malignant neoplasm of unspecified site of unspecified female breast; J45.51 Severe persistent asthma with (acute) exacerbation; K21.9 Gastro-esophageal reflux disease without esophagitis; I10 Essential (primary) hypertension; D63.8 Anemia in other chronic diseases classified elsewhere; J44.1 Chronic obstructive pulmonary disease with (acute) exacerbation; R73.9 Hyperglycemia, unspecified; J20.9 Acute bronchitis, unspecified; M54.5 Low back pain; F41.1 Generalized anxiety disorder; E66.9 Obesity, unspecified; F32.9 Major depressive disorder, single episode, unspecified; R74.0 Nonspecific elevation of levels of transaminase and lactic acid dehydrogenase [LDH]; Z88.8 Allergy status to other drugs, medicaments and biological substances; Z91.048 Other nonmedicinal substance allergy status; Z92.21 Personal history of antineoplastic chemotherapy; Z90.13 Acquired absence of bilateral breasts and nipples; Z90.721 Acquired absence of ovaries, unilateral; Z80.8 Family history of malignant neoplasm of other organs or systems; Z82.49 Family history of ischemic heart disease and other diseases of the circulatory system; Z83.3 Family history of diabetes mellitus; Z82.3 Family history of stroke; G89.29 Other chronic pain; I25.2 Old myocardial infarction; M19.90 Unspecified osteoarthritis, unspecified site; F17.210 Nicotine dependence, cigarettes, uncomplicated; Z79.899 Other long term (current) drug therapy; Z68.38 Body mass index [BMI] 38.0-38.9, adult

== ENCOUNTER → 2017-01-24 | Outpatient (CLI) | payer OTHER ==
[~2017-01-24] MED LIST changes: +AVPAK AZITHROM250 MG PO; +DULCOLAX5 M1 PO; +MORPHINE SULFAT3011 PO; +NORCO 10-325 T1 EACH PO; +SUPRAX400 M2 PO
[2017-01-24 11:27] LABS: BASO % 0.3 % (0.0-1.0); EOS # 0.2 10*3/uL (0.0-0.4); EOS % 3.1 % (1.0-4.0); HEMATOCRIT 36.8 % (37.0-47.0); LYMPH # 2.3 10*3/uL (1.3-4.4); LYMPH % 32.9 % (27.0-41.0); MEAN CELL VOLUME 106.1 fl (81.0-99.0); MEAN CORPUSCULAR HGB 34.6 pg (27.0-31.0); MEAN CORPUSCULAR HGB CONC 32.6 g/dl (33.0-37.0); MEAN PLATELET VOLUME 9.5 fl (9.6-12.3); MONO # 1.1 10*3/uL (0.1-1.0); NEUT # 3.4 10*3/uL (2.3-7.9); NEUT % 47.7 % (47.0-73.0); PLATELET COUNT AUTOMATED 270 10*3/uL (130-400); RED BLOOD COUNT 3.47 10*6/uL (4.10-5.10); RED CELL DISTRI WIDTH 14.9 % (0-14.5); WHITE BLOOD COUNT 7.1 10*3/uL (4.8-10.8)
[2017-01-24 11:54] LABS: ALBUMIN 3.4 gm/dl (3.1-4.5); BUN 14 mg/dl (7-24); CHLORIDE 102 mmol/L (98-107); CREATININE 0.99 mg/dL (0.55-1.02); POTASSIUM 3.9 mmol/L (3.5-5.1); SGOT/AST 15 IU/L (3-35); SGPT/ALT 15 U/L (12-78); SODIUM 137 mmol/L (136-145); TOTAL PROTEIN 7.7 gm/dL (6.4-8.2)
[2017-01-24 11:55] LABS: ALKALINE PHOSPHATASE 125 U/L (45-117)
== END | disposition home or self-care (01) ==
LOC: LAB 10:53
PROVIDERS: Internal Medicine
DX: C50.919 Malignant neoplasm of unspecified site of unspecified female breast (principal)

== ENCOUNTER → 2017-02-26 | Outpatient (CLI) | payer OTHER | LOC: MRI 02:30 | DX: M51.36 Other intervertebral disc degeneration, lumbar region (principal); M47.816 Spondylosis without myelopathy or radiculopathy, lumbar region; M47.22 Other spondylosis with radiculopathy, cervical region; M12.88 Other specific arthropathies, not elsewhere classified, other specified site ==

== ENCOUNTER → 2017-04-09 | Outpatient (CLI) | payer OTHER ==
--- NOTE | 2017-04-09 10:47 | NUR ---
PT HERE FOR MEDIPORT FLUSH ORDERED. ACCESSED WITH NONCORING NEEDLE PER P&P. FLUSHED EASILY WITHOUT PROBLEM. VERY SLUGGISH BLOOD RETURN. NEEDLE REMOVED. NO BLEEDING NOTED. DRESSING APPLIED. ANDRE SINGH RN
== END | disposition home or self-care (01) ==
LOC: MEDIPORT 10:30
DX: C50.919 Malignant neoplasm of unspecified site of unspecified female breast (principal)

== ENCOUNTER → 2017-05-27 | Outpatient (CLI) | payer OTHER | END | disposition home or self-care (01) | LOC: MEDIPORT 03:31 | DX: C50.919 Malignant neoplasm of unspecified site of unspecified female breast (principal) ==

== ENCOUNTER 2017-08-28 10:32 | Inpatient (IN) | payer OTHER ==
[~2017-08-28] VITALS: Ht 157.4 cm; Wt 91.4 kg
[2017-08-28 10:37] VITALS: BP 125/98
[2017-08-28 11:21] LABS: BASO % 0.5 % (0.0-1.0); EOS # 0.1 10*3/uL (0.0-0.4); EOS % 1.4 % (1.0-4.0); HEMATOCRIT 42.9 % (37.0-47.0); HEMOGLOBIN 14.3 g/dl (12.0-16.0); LYMPH # 2.5 10*3/uL (1.3-4.4); LYMPH % 28.3 % (27.0-41.0); MEAN CELL VOLUME 91.9 fl (81.0-99.0); MEAN CORPUSCULAR HGB 30.6 pg (27.0-31.0); MEAN CORPUSCULAR HGB CONC 33.3 g/dl (33.0-37.0); MEAN PLATELET VOLUME 8.9 fl (9.6-12.3); MONO % 11.4 % (3.0-9.0); NEUT % 57.8 % (47.0-73.0); PLATELET COUNT AUTOMATED 264 10*3/uL (130-400); RED BLOOD COUNT 4.67 10*6/uL (4.10-5.10); RED CELL DISTRI WIDTH 13.1 % (0-14.5); WHITE BLOOD COUNT 8.7 10*3/uL (4.8-10.8)
[2017-08-28 11:35] LABS: ALBUMIN 3.7 gm/dl (3.1-4.5); ALKALINE PHOSPHATASE 137 U/L (45-117); BUN 9 mg/dl (7-24); CHLORIDE 102 mmol/L (98-107); CREATININE 0.84 mg/dL (0.55-1.02); LIPASE 79 U/L (73-393); POTASSIUM 3.8 mmol/L (3.5-5.1); SGOT/AST 11 IU/L (3-35); SGPT/ALT 20 U/L (12-78); SODIUM 136 mmol/L (136-145); TOTAL PROTEIN 7.5 gm/dL (6.4-8.2)
[2017-08-28 11:37] LABS: BILIRUBIN NEGATIVE (NEGATIVE); BLOOD NEGATIVE (NEGATIVE); CLARITY CLEAR (CLEAR); COLOR YELLOW (YELLOW); GLUCOSE NEGATIVE (NEGATIVE); KETONE TRACE (NEGATIVE); LEUKO ESTERASE NEGATIVE (NEGATIVE); NITRITE NEGATIVE (NEGATIVE); PH 5.5 (5.0-9.0); SPECIFIC GRAVITY 1.025 (1.005-1.030); UROBILINOGEN 0.2 E.U./dl (0.2-1.0)
[2017-08-28 11:58] LABS: BACTERIA 1+; EPITHELIAL CELLS 20-30; MUCOUS 1+
[2017-08-28 13:55] VITALS: BP 120/76
[2017-08-28 14:20] VITALS: BP 111/69
[2017-08-28] MEDS ORDERED: XTAMPZA ER27 MG PO (15:12)
[2017-08-28] MEDS ORDERED: COREG3.125 MG PO (15:13)
[2017-08-28] MEDS ORDERED: NEURONTIN100 MG PO (15:13)
[2017-08-28] MEDS ORDERED: PERCOCET 10-321 EACH PO (15:13)
[2017-08-28] MEDS ORDERED: LIPITOR10 MG PO (15:14)
[2017-08-28 15:15] VITALS: BP 135/90
[2017-08-28 15:52] VITALS: BP 135/90
[2017-08-28] MEDS ORDERED: ROBAXIN500 M1 PO (16:32)
[2017-08-28] MEDS ORDERED: HERCEPTIN150 MG IV (16:38)
[2017-08-28] MEDS ORDERED: [UNRECOGNIZED DRUG - OTHER] T (16:39)
[2017-08-28] MEDS ORDERED: CYMBALTA60 MG PO (16:39)
[2017-08-28] MEDS ORDERED: TRAZODONE50 MG PO (16:39)
[2017-08-28] MEDS ORDERED: OMEPRAZOLE20 M2 PO (16:40)
[2017-08-28] MEDS ORDERED: VOLTAREN100 GM T (16:45)
[2017-08-28] MEDS ORDERED: VISTARIL25 M2 PO (16:46)
[2017-08-28] MEDS ORDERED: IMODIUM A-D2 M2 PO (16:46)
[2017-08-28] MEDS ORDERED: NICODERM CQ1 EAC2 TD (16:47)
[2017-08-28] MEDS ORDERED: DOCUSATE SODIU100 M2 PO (16:48)
[2017-08-28] MEDS ORDERED: CEPHULAC10 GM/151 PO (16:49)
[2017-08-28] MEDS ORDERED: SENNA8.6 MG PO (16:50)
[2017-08-28] MEDS ORDERED: PROAIR HFA8.5 GM INH (16:51)
[2017-08-28] MEDS ORDERED: SYMB80 INH (16:52)
[2017-08-28 20:00] VITALS: BP 139/91
[2017-08-29] VITALS: BP 117/78
[2017-08-29 07:51] LABS: BASO % 0.5 % (0.0-1.0); EOS # 0.1 10*3/uL (0.0-0.4); EOS % 2.1 % (1.0-4.0); LYMPH # 1.8 10*3/uL (1.3-4.4); LYMPH % 26.7 % (27.0-41.0); MEAN CELL VOLUME 93.1 fl (81.0-99.0); MEAN CORPUSCULAR HGB 30.8 pg (27.0-31.0); MEAN CORPUSCULAR HGB CONC 33.1 g/dl (33.0-37.0); MONO # 0.8 10*3/uL (0.1-1.0); MONO % 12.5 % (3.0-9.0); NEUT # 3.8 10*3/uL (2.3-7.9); NEUT % 57.7 % (47.0-73.0); PLATELET COUNT AUTOMATED 205 10*3/uL (130-400); RED BLOOD COUNT 3.93 10*6/uL (4.10-5.10); RED CELL DISTRI WIDTH 13.1 % (0-14.5); WHITE BLOOD COUNT 6.6 10*3/uL (4.8-10.8)
[2017-08-29 07:52] LABS: HEMATOCRIT 36.6 % (37.0-47.0)
[2017-08-29 07:53] LABS: HEMOGLOBIN 12.1 g/dl (12.0-16.0)
[2017-08-29 08:00] VITALS: BP 138/98
[2017-08-29 08:01] LABS: ACT PARTIAL THROMBO TIME 25.6 SECONDS (20.8-31.5)
[2017-08-29 08:18] LABS: ALBUMIN 3.3 gm/dl (3.1-4.5); BUN 9 mg/dl (7-24); CHLORIDE 105 mmol/L (98-107); POTASSIUM 3.8 mmol/L (3.5-5.1); SGOT/AST 20 IU/L (3-35); SGPT/ALT 20 U/L (12-78); SODIUM 139 mmol/L (136-145)
[2017-08-29 08:29] LABS: ALKALINE PHOSPHATASE 120 U/L (45-117); PHOSPHOROUS 3.9 mg/dL (2.5-4.9); TOTAL PROTEIN 6.3 gm/dL (6.4-8.2)
[2017-08-29 08:49] LABS: CREATININE 0.73 mg/dL (0.55-1.02)
[2017-08-29 12:00] VITALS: BP 143/91
[2017-08-29 16:00] VITALS: BP 128/74
[2017-08-29 20:00] VITALS: BP 128/66
[2017-08-30] VITALS: BP 126/80
[2017-08-30 06:54] LABS: BASO % 0.5 % (0.0-1.0); EOS # 0.1 10*3/uL (0.0-0.4); EOS % 2.6 % (1.0-4.0); HEMATOCRIT 35.3 % (37.0-47.0); HEMOGLOBIN 11.7 g/dl (12.0-16.0); LYMPH # 1.6 10*3/uL (1.3-4.4); LYMPH % 36.6 % (27.0-41.0); MEAN CELL VOLUME 93.4 fl (81.0-99.0); MEAN CORPUSCULAR HGB CONC 33.1 g/dl (33.0-37.0); MONO # 0.6 10*3/uL (0.1-1.0); MONO % 13.7 % (3.0-9.0); NEUT % 46.1 % (47.0-73.0); PLATELET COUNT AUTOMATED 186 10*3/uL (130-400); RED BLOOD COUNT 3.78 10*6/uL (4.10-5.10); WHITE BLOOD COUNT 4.2 10*3/uL (4.8-10.8)
[2017-08-30 07:10] LABS: ALBUMIN 2.8 gm/dl (3.1-4.5); ALKALINE PHOSPHATASE 113 U/L (45-117); BUN 8 mg/dl (7-24); CHLORIDE 110 mmol/L (98-107); CREATININE 0.76 mg/dL (0.55-1.02); LIPASE 71 U/L (73-393); PHOSPHOROUS 3.8 mg/dL (2.5-4.9); POTASSIUM 3.4 mmol/L (3.5-5.1); SGOT/AST 21 IU/L (3-35); SGPT/ALT 24 U/L (12-78); SODIUM 142 mmol/L (136-145); TOTAL PROTEIN 5.9 gm/dL (6.4-8.2)
[2017-08-30 08:00] VITALS: BP 135/93
[2017-08-30 12:00] VITALS: BP 134/99
[2017-08-30 16:00] VITALS: BP 122/53; BP 132/79
[2017-08-31] VITALS: BP 140/86
[2017-08-31 08:00] VITALS: BP 139/99
[2017-08-31 08:40] LABS: BASO % 0.4 % (0.0-1.0); EOS # 0.1 10*3/uL (0.0-0.4); EOS % 1.9 % (1.0-4.0); HEMATOCRIT 35.5 % (37.0-47.0); HEMOGLOBIN 11.6 g/dl (12.0-16.0); LYMPH # 1.1 10*3/uL (1.3-4.4); LYMPH % 23.7 % (27.0-41.0); MEAN CELL VOLUME 94.2 fl (81.0-99.0); MEAN CORPUSCULAR HGB 30.8 pg (27.0-31.0); MEAN CORPUSCULAR HGB CONC 32.7 g/dl (33.0-37.0); MEAN PLATELET VOLUME 9.2 fl (9.6-12.3); MONO # 0.4 10*3/uL (0.1-1.0); MONO % 8.3 % (3.0-9.0); NEUT # 3.1 10*3/uL (2.3-7.9); NEUT % 65.1 % (47.0-73.0); PLATELET COUNT AUTOMATED 210 10*3/uL (130-400); RED BLOOD COUNT 3.77 10*6/uL (4.10-5.10); RED CELL DISTRI WIDTH 13.1 % (0-14.5); WHITE BLOOD COUNT 4.8 10*3/uL (4.8-10.8)
[2017-08-31 08:46] LABS: ALBUMIN 2.9 gm/dl (3.1-4.5); ALKALINE PHOSPHATASE 109 U/L (45-117); BUN 13 mg/dl (7-24); CHLORIDE 109 mmol/L (98-107); CREATININE 0.92 mg/dL (0.55-1.02); SGOT/AST 14 IU/L (3-35); SGPT/ALT 21 U/L (12-78); SODIUM 142 mmol/L (136-145); TOTAL PROTEIN 6.4 gm/dL (6.4-8.2)
[2017-08-31 12:00] VITALS: BP 134/90
[2017-08-31 16:00] VITALS: BP 157/80
[2017-08-31 20:00] VITALS: BP 136/75
[2017-09-01] VITALS: BP 136/89
[2017-09-01 06:26] LABS: BASO % 0.4 % (0.0-1.0); EOS # 0.1 10*3/uL (0.0-0.4); EOS % 2.4 % (1.0-4.0); HEMATOCRIT 37.9 % (37.0-47.0); HEMOGLOBIN 12.4 g/dl (12.0-16.0); LYMPH # 1.8 10*3/uL (1.3-4.4); LYMPH % 40.2 % (27.0-41.0); MEAN CELL VOLUME 94.5 fl (81.0-99.0); MEAN CORPUSCULAR HGB 30.9 pg (27.0-31.0); MEAN CORPUSCULAR HGB CONC 32.7 g/dl (33.0-37.0); MONO # 0.6 10*3/uL (0.1-1.0); MONO % 13.1 % (3.0-9.0); NEUT % 43.5 % (47.0-73.0); PLATELET COUNT AUTOMATED 217 10*3/uL (130-400); RED BLOOD COUNT 4.01 10*6/uL (4.10-5.10); WHITE BLOOD COUNT 4.6 10*3/uL (4.8-10.8)
[2017-09-01 06:57] LABS: ALBUMIN 3.1 gm/dl (3.1-4.5); ALKALINE PHOSPHATASE 103 U/L (45-117); BUN 7 mg/dl (7-24); CHLORIDE 104 mmol/L (98-107); CREATININE 0.75 mg/dL (0.55-1.02); LIPASE 96 U/L (73-393); POTASSIUM 3.5 mmol/L (3.5-5.1); SGOT/AST 14 IU/L (3-35); SGPT/ALT 19 U/L (12-78); SODIUM 141 mmol/L (136-145); TOTAL PROTEIN 6.5 gm/dL (6.4-8.2)
[2017-09-01 08:00] VITALS: BP 134/84
[2017-09-01 12:00] VITALS: BP 140/90
[2017-09-01] MEDS ORDERED: LORAZEPAM1 MG PO (13:33)
[2017-09-01] MEDS ORDERED: Bactroban Oint22 GM T (13:33)
[2017-09-01] MEDS ORDERED: ZOFRAN8 M1 PO (13:33)
[2017-09-01] MEDS ORDERED: TRAZODONE50 MG PO (13:33)
[2017-09-01] MEDS ORDERED: DICYCLOMINE HCL10 MG PO (13:33)
== END 2017-09-01 15:45 | disposition home or self-care (01) | DRG 372 ==
LOC: ED 10:32 → 5E 14:34 → EDHOLD 14:34 → 5E 14:44
PROVIDERS: Emergency Medicine; Family Medicine; Internal Medicine
DX: K35.3 Acute appendicitis with localized peritonitis (principal); D68.59 Other primary thrombophilia; C50.911 Malignant neoplasm of unspecified site of right female breast; F33.9 Major depressive disorder, recurrent, unspecified; N30.10 Interstitial cystitis (chronic) without hematuria; G62.9 Polyneuropathy, unspecified; K59.00 Constipation, unspecified; R79.82 Elevated C-reactive protein (CRP); J44.9 Chronic obstructive pulmonary disease, unspecified; I25.10 Atherosclerotic heart disease of native coronary artery without angina pectoris; F41.9 Anxiety disorder, unspecified; E66.9 Obesity, unspecified; R70.0 Elevated erythrocyte sedimentation rate; R74.8 Abnormal levels of other serum enzymes; I10 Essential (primary) hypertension; G89.29 Other chronic pain; E89.0 Postprocedural hypothyroidism; E55.9 Vitamin D deficiency, unspecified; Z72.0 Tobacco use; Z71.6 Tobacco abuse counseling; I25.2 Old myocardial infarction; Z90.13 Acquired absence of bilateral breasts and nipples; Z90.722 Acquired absence of ovaries, bilateral; Z80.2 Family history of malignant neoplasm of other respiratory and intrathoracic organs; Z80.8 Family history of malignant neoplasm of other organs or systems; Z88.8 Allergy status to other drugs, medicaments and biological substances; Z79.899 Other long term (current) drug therapy; Z68.36 Body mass index [BMI] 36.0-36.9, adult

== ENCOUNTER 2018-01-23 12:56 | Emergency (ER) | payer OTHER ==
[~2018-01-23] VITALS: Ht 157.4 cm; Wt 90.7 kg
--- NOTE | ~2018-01-23 | EKG ---
[place], [place] ELECTROCARDIOGRAM REPORT NAME: GIDEON JIMÉNEZ UNIT #: [id number] ROOM: DOCTOR: EPIPHANY DRAFT REPORT BIRTHDATE: [birth year] [facility] Test Date: 2018-01-23 Test Time: 14:33:43 Pat Name: GIDEON JIMÉNEZ Department: Room: Gender: F [employer] Att[employer]: : 1970 Requested By: KILLIAN SANDS Order Number: [id number] Reading MD: Ruthy Sawyer MD Measurements Intervals [place] Rate: 80 P: 20 [place]: 189 QRS: -4 QRSD: 58 T: QT: 482 QTc: 557 Interpretive Statements Sinus rhythm Low voltage, precordial leads Borderline T wave abnormalities Prolonged QT interval Electronically Signed On 01-24-2018 4:29:24 PDT by Ruthy Sawyer MD CM:EKGRPT:ELECTROCARDIOGRAM REPORT [id number] KILLIAN BALDERRAMA DRAFT REPORT KILLIAN SAMS
[~2018-01-23 12:56] MED LIST changes: +Bactroban Oint22 GM T; +CEPHULAC10 GM/151 PO; +COREG3.125 MG PO; +DICYCLOMINE HCL10 MG PO; +DOCUSATE SODIU100 M2 PO; +HERCEPTIN150 MG IV; +LIPITOR10 MG PO; +LORAZEPAM1 MG PO; +NICODERM CQ1 EAC2 TD; +PERCOCET 10-321 EACH PO; +ROBAXIN500 M1 PO; +SENNA8.6 MG PO; +SYMB80 INH; +VOLTAREN100 GM T; +XTAMPZA ER27 MG PO; +[UNRECOGNIZED DRUG - OTHER] T
[2018-01-23] MEDS ORDERED: BRILINTA90 M1 PO (13:07)
[2018-01-23] MEDS ORDERED: MORPHINE SULFAT30 M8 PO (13:08)
[2018-01-23] MEDS ORDERED: MORPHINE SULFAT30 M1 PO (13:09)
[2018-01-23 14:40] LABS: BASO % 0.3 % (0.0-1.0); EOS # 0.3 10*3/uL (0.0-0.4); EOS % 3.4 % (1.0-4.0); HEMATOCRIT 39.7 % (37.0-47.0); HEMOGLOBIN 13.3 g/dl (12.0-16.0); LYMPH # 1.8 10*3/uL (1.3-4.4); LYMPH % 23.6 % (27.0-41.0); MEAN CELL VOLUME 92.8 fl (81.0-99.0); MEAN CORPUSCULAR HGB 31.1 pg (27.0-31.0); MEAN CORPUSCULAR HGB CONC 33.5 g/dl (33.0-37.0); MEAN PLATELET VOLUME 9.5 fl (9.6-12.3); MONO % 12.5 % (3.0-9.0); NEUT # 4.6 10*3/uL (2.3-7.9); NEUT % 59.7 % (47.0-73.0); PLATELET COUNT AUTOMATED 221 10*3/uL (130-400); RED BLOOD COUNT 4.28 10*6/uL (4.10-5.10); RED CELL DISTRI WIDTH 13.1 % (0-14.5); WHITE BLOOD COUNT 7.7 10*3/uL (4.8-10.8)
[2018-01-23 16:11] LABS: ACT PARTIAL THROMBO TIME 24.7 SECONDS (20.8-31.5)
[2018-01-23 16:17] LABS: ALBUMIN 3.4 gm/dl (3.1-4.5); ALKALINE PHOSPHATASE 145 U/L (45-117); BUN 10 mg/dl (7-24); CHLORIDE 105 mmol/L (98-107); CREATININE 0.76 mg/dL (0.55-1.02); LIPASE 80 U/L (73-393); POTASSIUM 3.7 mmol/L (3.5-5.1); SGOT/AST 19 IU/L (3-35); SGPT/ALT 36 U/L (12-78); SODIUM 138 mmol/L (136-145); TOTAL PROTEIN 7.4 gm/dL (6.4-8.2); TROPONIN I < 0.015 ng/ml (<0.045)
[2018-01-23 17:09] VITALS: BP 127/83
[2018-01-23] MEDS ORDERED: ZOFRAN ODT4 MG SL (17:50)
[2018-01-23] MEDS ORDERED: NORCO 5-325 TA1 EACH PO (17:51)
[2018-03-24] MEDS ORDERED: BRILINTA90 M1 PO (19:54)
[2018-03-24] MEDS ORDERED: ASPIR 8181 MG PO (19:56)
[2018-03-24] MEDS ORDERED: ATIVAN1 MG PO (19:58)
[2018-03-24] MEDS ORDERED: ELMIRON100 MG PO (19:59)
[2018-03-24] MEDS ORDERED: CHANTIX1 M1 PO (20:01)
[2018-03-24] MEDS ORDERED: VOLTAREN100 GM T (20:02)
[2018-03-24] MEDS ORDERED: GENERLAC10 GM/15 M PO (20:04)
[2018-03-24] MEDS ORDERED: BENTYL PO (21:37)
[2018-03-24] MEDS ORDERED: LORATADINE10 M3 PO (21:38)
[2018-03-25] MEDS ORDERED: EARACHE DROPS OT (11:02)
[2018-03-26] MEDS ORDERED: AUGMENTIN 875875 MG PO (12:52)
== END 2018-01-23 17:53 | disposition home or self-care (01) ==
LOC: ED 12:56
PROVIDERS: Physician Assistant
DX: G89.3 Neoplasm related pain (acute) (chronic) (principal); R19.7 Diarrhea, unspecified; R11.2 Nausea with vomiting, unspecified; I10 Essential (primary) hypertension; F17.200 Nicotine dependence, unspecified, uncomplicated; Z88.6 Allergy status to analgesic agent; Z88.8 Allergy status to other drugs, medicaments and biological substances; Z79.899 Other long term (current) drug therapy; Z85.3 Personal history of malignant neoplasm of breast

== ENCOUNTER 2018-02-12 17:39 | Emergency (ER) | payer OTHER ==
[~2018-02-12] VITALS: Ht 157.4 cm; Wt 95.3 kg
[~2018-02-12 17:39] MED LIST changes: +BRILINTA90 M1 PO; +MORPHINE SULFAT30 M1 PO; +MORPHINE SULFAT30 M8 PO; +NORCO 5-325 TA1 EACH PO
[2018-02-12 17:42] VITALS: BP 133/95
[2018-02-12 18:27] LABS: BASO % 0.4 % (0.0-1.0); EOS # 0.3 10*3/uL (0.0-0.4); EOS % 3.7 % (1.0-4.0); HEMATOCRIT 39.9 % (37.0-47.0); HEMOGLOBIN 13.8 g/dl (12.0-16.0); LYMPH # 1.5 10*3/uL (1.3-4.4); LYMPH % 20.7 % (27.0-41.0); MEAN CELL VOLUME 90.7 fl (81.0-99.0); MEAN CORPUSCULAR HGB 31.4 pg (27.0-31.0); MEAN CORPUSCULAR HGB CONC 34.6 g/dl (33.0-37.0); MEAN PLATELET VOLUME 10.2 fl (9.6-12.3); MONO # 1.2 10*3/uL (0.1-1.0); MONO % 16.6 % (3.0-9.0); NEUT # 4.2 10*3/uL (2.3-7.9); NEUT % 57.8 % (47.0-73.0); NUCLEATED RED BLOOD CELL 0.3 % (0.0-0.0); PLATELET COUNT AUTOMATED 56 10*3/uL (130-400); RED CELL DISTRI WIDTH 12.6 % (0-14.5); WHITE BLOOD COUNT 7.3 10*3/uL (4.8-10.8)
[2018-02-12 18:37] LABS: BUN 10 mg/dl (7-24); CHLORIDE 101 mmol/L (98-107); CREATININE 0.75 mg/dL (0.55-1.02); POTASSIUM 3.3 mmol/L (3.5-5.1); SODIUM 137 mmol/L (136-145)
[2018-02-12 18:39] LABS: ACT PARTIAL THROMBO TIME 30.7 SECONDS (20.8-31.5); INTERNATIONAL NORM RATIO 0.9 (2.0-3.5)
[2018-02-12] MEDS ORDERED: VALTREX500 MG PO (21:10)
[2018-03-24] MEDS ORDERED: BRILINTA90 M1 PO (19:54)
[2018-03-24] MEDS ORDERED: ASPIR 8181 MG PO (19:56)
[2018-03-24] MEDS ORDERED: ATIVAN1 MG PO (19:58)
[2018-03-24] MEDS ORDERED: ELMIRON100 MG PO (19:59)
[2018-03-24] MEDS ORDERED: CHANTIX1 M1 PO (20:01)
[2018-03-24] MEDS ORDERED: VOLTAREN100 GM T (20:02)
[2018-03-24] MEDS ORDERED: GENERLAC10 GM/15 M PO (20:04)
[2018-03-24] MEDS ORDERED: BENTYL PO (21:37)
[2018-03-24] MEDS ORDERED: LORATADINE10 M3 PO (21:38)
[2018-03-25] MEDS ORDERED: EARACHE DROPS OT (11:02)
[2018-03-26] MEDS ORDERED: AUGMENTIN 875875 MG PO (12:52)
== END 2018-02-12 20:50 | disposition home or self-care (01) ==
LOC: ED 17:39
PROVIDERS: Emergency Medicine
DX: R04.0 Epistaxis (principal); F17.200 Nicotine dependence, unspecified, uncomplicated; J45.909 Unspecified asthma, uncomplicated; J44.9 Chronic obstructive pulmonary disease, unspecified; I25.10 Atherosclerotic heart disease of native coronary artery without angina pectoris; I10 Essential (primary) hypertension; E78.1 Pure hyperglyceridemia; I25.2 Old myocardial infarction; E66.9 Obesity, unspecified; Z98.890 Other specified postprocedural states; Z68.30 Body mass index [BMI] 30.0-30.9, adult; Z79.899 Other long term (current) drug therapy; Z88.8 Allergy status to other drugs, medicaments and biological substances; Z91.048 Other nonmedicinal substance allergy status

== ENCOUNTER → 2018-02-25 | Outpatient (CLI) | payer OTHER ==
[~2018-02-25] MED LIST changes: +ASPIR 8181 MG PO; +ATIVAN1 MG PO; +AUGMENTIN 875875 MG PO; +BENTYL PO; +EARACHE DROPS OT; +GENERLAC10 GM/15 M PO; +LORATADINE10 M3 PO; +VALTREX500 MG PO
[2018-02-25 10:30] LABS: BASO % 0.4 % (0.0-1.0); EOS # 0.2 10*3/uL (0.0-0.4); EOS % 2.2 % (1.0-4.0); HEMATOCRIT 41.6 % (37.0-47.0); HEMOGLOBIN 13.6 g/dl (12.0-16.0); LYMPH # 2.6 10*3/uL (1.3-4.4); LYMPH % 32.9 % (27.0-41.0); MEAN CELL VOLUME 94.3 fl (81.0-99.0); MEAN CORPUSCULAR HGB 30.8 pg (27.0-31.0); MEAN CORPUSCULAR HGB CONC 32.7 g/dl (33.0-37.0); MEAN PLATELET VOLUME 9.1 fl (9.6-12.3); MONO # 0.9 10*3/uL (0.1-1.0); MONO % 11.1 % (3.0-9.0); NEUT # 4.1 10*3/uL (2.3-7.9); PLATELET COUNT AUTOMATED 313 10*3/uL (130-400); RED BLOOD COUNT 4.41 10*6/uL (4.10-5.10); RED CELL DISTRI WIDTH 13.2 % (0-14.5); WHITE BLOOD COUNT 7.8 10*3/uL (4.8-10.8)
[2018-02-25 10:47] LABS: ALBUMIN 3.6 gm/dl (3.1-4.5); ALKALINE PHOSPHATASE 143 U/L (45-117); BILIRUBIN, DIRECT < 0.1 mg/dL (0.0-0.2); BUN 13 mg/dl (7-24); CHLORIDE 102 mmol/L (98-107); CREATININE 0.86 mg/dL (0.55-1.02); POTASSIUM 3.7 mmol/L (3.5-5.1); SGOT/AST 27 IU/L (3-35); SGPT/ALT 47 U/L (12-78); SODIUM 137 mmol/L (136-145); TOTAL PROTEIN 8.1 gm/dL (6.4-8.2)
== END | disposition home or self-care (01) ==
LOC: LAB 10:04
PROVIDERS: Internal Medicine
DX: C50.919 Malignant neoplasm of unspecified site of unspecified female breast (principal)

== ENCOUNTER → 2018-04-02 | Outpatient (CLI) | payer OTHER ==
[2018-04-02 15:55] LABS: ALBUMIN 3.4 gm/dl (3.1-4.5); ALKALINE PHOSPHATASE 117 U/L (45-117); BILIRUBIN, DIRECT < 0.1 mg/dL (0.0-0.2); BUN 12 mg/dl (7-24); CHLORIDE 105 mmol/L (98-107); CREATININE 0.82 mg/dL (0.55-1.02); POTASSIUM 4.1 mmol/L (3.5-5.1); SGOT/AST 26 IU/L (3-35); SGPT/ALT 34 U/L (12-78); SODIUM 138 mmol/L (136-145); TOTAL PROTEIN 7.4 gm/dL (6.4-8.2)
[2018-04-02 17:06] LABS: BASO % 0.4 % (0.0-1.0); EOS # 0.2 10*3/uL (0.0-0.4); EOS % 2.6 % (1.0-4.0); HEMATOCRIT 38.3 % (37.0-47.0); HEMOGLOBIN 12.3 g/dl (12.0-16.0); LYMPH # 3.1 10*3/uL (1.3-4.4); LYMPH % 32.7 % (27.0-41.0); MEAN CELL VOLUME 94.6 fl (81.0-99.0); MEAN CORPUSCULAR HGB 30.4 pg (27.0-31.0); MEAN CORPUSCULAR HGB CONC 32.1 g/dl (33.0-37.0); MEAN PLATELET VOLUME 9.2 fl (9.6-12.3); MONO # 1.4 10*3/uL (0.1-1.0); MONO % 15.2 % (3.0-9.0); NEUT # 4.6 10*3/uL (2.3-7.9); NEUT % 48.8 % (47.0-73.0); PLATELET COUNT AUTOMATED 234 10*3/uL (130-400); RED BLOOD COUNT 4.05 10*6/uL (4.10-5.10); RED CELL DISTRI WIDTH 14.2 % (0-14.5); WHITE BLOOD COUNT 9.4 10*3/uL (4.8-10.8)
== END | disposition home or self-care (01) ==
LOC: LAB 15:18
PROVIDERS: Internal Medicine
DX: J43.9 Emphysema, unspecified (principal); R06.02 Shortness of breath; R51 Headache; H92.09 Otalgia, unspecified ear; Z85.3 Personal history of malignant neoplasm of breast

== ENCOUNTER 2018-05-26 20:43 | Emergency (ER) | payer OTHER ==
[~2018-05-26] VITALS: Ht 157.4 cm; Wt 93.9 kg
[2018-05-26 22:43] VITALS: BP 137/112
== END 2018-05-26 22:55 | disposition home or self-care (01) ==
LOC: ED 20:43
DX: G89.3 Neoplasm related pain (acute) (chronic) (principal); C50.911 Malignant neoplasm of unspecified site of right female breast; R07.89 Other chest pain; M54.5 Low back pain; J44.9 Chronic obstructive pulmonary disease, unspecified; I25.10 Atherosclerotic heart disease of native coronary artery without angina pectoris; I10 Essential (primary) hypertension; E78.2 Mixed hyperlipidemia; I25.2 Old myocardial infarction; E66.9 Obesity, unspecified; F17.200 Nicotine dependence, unspecified, uncomplicated; Z76.0 Encounter for issue of repeat prescription; Z88.8 Allergy status to other drugs, medicaments and biological substances; Z91.048 Other nonmedicinal substance allergy status; Z91.030 Bee allergy status; Z79.899 Other long term (current) drug therapy; Z79.82 Long term (current) use of aspirin; Z68.30 Body mass index [BMI] 30.0-30.9, adult; Z98.890 Other specified postprocedural states

== ENCOUNTER 2018-06-22 12:29 | Emergency (ER) | payer OTHER ==
[2018-06-22 12:29] VITALS: BP 142/84
[2018-06-22 12:53] LABS: BASO % 0.4 % (0.0-1.0); EOS # 0.3 10*3/uL (0.0-0.4); EOS % 3.5 % (1.0-4.0); HEMATOCRIT 38.5 % (37.0-47.0); HEMOGLOBIN 12.5 g/dl (12.0-16.0); LYMPH # 2.4 10*3/uL (1.3-4.4); MEAN CORPUSCULAR HGB 30.2 pg (27.0-31.0); MEAN CORPUSCULAR HGB CONC 32.5 g/dl (33.0-37.0); MEAN PLATELET VOLUME 9.6 fl (9.6-12.3); MONO # 1.4 10*3/uL (0.1-1.0); MONO % 19.6 % (3.0-9.0); NEUT # 3.2 10*3/uL (2.3-7.9); NEUT % 43.8 % (47.0-73.0); PLATELET COUNT AUTOMATED 160 10*3/uL (130-400); RED BLOOD COUNT 4.14 10*6/uL (4.10-5.10); RED CELL DISTRI WIDTH 14.4 % (0-14.5); WHITE BLOOD COUNT 7.3 10*3/uL (4.8-10.8)
[2018-06-22 13:00] LABS: INTERNATIONAL NORM RATIO 0.9 (2.0-3.5)
[2018-06-22 13:16] LABS: ALBUMIN 3.3 gm/dl (3.1-4.5); ALKALINE PHOSPHATASE 129 U/L (45-117); BUN 10 mg/dl (7-24); CHLORIDE 102 mmol/L (98-107); CREATININE 0.82 mg/dL (0.55-1.02); POTASSIUM 3.6 mmol/L (3.5-5.1); SGOT/AST 85 IU/L (3-35); SGPT/ALT 54 U/L (12-78); SODIUM 139 mmol/L (136-145); TOTAL PROTEIN 7.9 gm/dL (6.4-8.2)
[2018-10-27] MEDS ORDERED: VALTREX1000 MG PO (14:39)
== END 2018-06-22 14:50 | disposition home or self-care (01) ==
LOC: ED 12:29
PROVIDERS: Nurse Practitioner Family
DX: R04.0 Epistaxis (principal); I25.2 Old myocardial infarction; F17.200 Nicotine dependence, unspecified, uncomplicated; Z79.899 Other long term (current) drug therapy; Z79.82 Long term (current) use of aspirin; Z88.8 Allergy status to other drugs, medicaments and biological substances; Z91.030 Bee allergy status